=== PATIENT | male | born 1950 | race African-American/Black ===

== ENCOUNTER 2017-11-10 19:08 | Emergency (ER) | payer OTHER ==
[~2017-11-10] VITALS: Ht 175.3 cm; Wt 110.2 kg
--- NOTE | ~2017-11-10 | EKG ---
[place] [address] [facility] [place] [employer] [place] [address] ELECTROCARDIOGRAM REPORT Name: JACQUES DOWELL Room #: DEP LUISANA Buenrostro#: [id number] Admission: 11/10/17 Attend Phys: Discharge: 11/10/17 Date of : 52 Report #: [id number] THIS REPORT FOR: //name// [facility] ED Test Date: 2017-11-10 Test Time: 19:15:12 Pat Name: JACQUES DOWELL Department: Room: Gender: Inspector Conveyor Line: BELA : 1950 Requested By: Michael Rojas Order Number: [id number] MD: Octaviano Valerio Measurements Intervals [place] Rate: 97 P: 13 IA: 168 QRS: -28 QRSD: 94 T: -6 QT: 370 QTc: 470 Interpretive Statements Sinus tachycardia Ventricular bigeminy Probable left atrial enlargement Borderline left axis deviation No previous ECG available for comparison Electronically Signed On 11-11-2017 19:48:48 CDT by Octaviano Valerio [email or web address] <ELECTRONICALLY SIGNED> By: Octaviano Valerio MD 11/11/17 194 14 191 MD DENIS Woodall
[2017-11-10] MEDS ORDERED: VERAPAMIL E.R240 M1 PO (19:18)
[2017-11-10] MEDS ORDERED: ASPIR 8181 MG PO (19:18)
[2017-11-10] MEDS ORDERED: NEURONTIN 300300 M1 PO (19:21)
[2017-11-10] MEDS ORDERED: LIPITOR 20 MG T20 M1 PO (19:22)
[2017-11-10] MEDS ORDERED: DOXAZOSIN MESYLA4 MG PO (19:22)
[2017-11-10] MEDS ORDERED: ROBAXIN 750 MG750 M1 PO (19:23)
[2017-11-10] MEDS ORDERED: PERCOCET PO (19:23)
[2017-11-10] MEDS ORDERED: CENTRUM SILVER1 EAC4 PO (19:24)
[2017-11-10] MEDS ORDERED: ALPHAGAN P5 ML OPHTHALMIC (19:24)
[2017-11-10] MEDS ORDERED: XALATAN2.5 ML OPHTHALMIC (19:25)
[2017-11-10 19:33] LABS: ABSOLUTE NEUTROPHILS 3.6 thou/uL (1.4-8.2); BASOPHILS 0.4 % (0.0-2.0); EOSINOPHILS 1.7 % (0.0-3.0); HEMATOCRIT 39.1 % (42.0-52.0); HEMOGLOBIN 13.1 gm/dL (14.0-18.0); LYMPHOCYTES 28.4 % (24.0-44.0); MCH 30.7 pg (26.0-34.0); MCHC 33.6 g/dL (28.0-37.0); MCV 91.3 fL (80.0-100.0); MONOCYTES 8.8 % (1.0-8.0); PLATELET COUNT 255 thou/uL (150-400); POLYS 60.7 % (36.0-66.0); RBC 4.28 mil/uL (4.50-6.00); RDW 14.2 % (10.5-14.5); WBC 5.9 thou/uL (4.0-11.0)
[2017-11-10 19:42] LABS: CALCIUM 9.2 mg/dL (8.5-10.1); CREATININE 1.5 mg/dL (0.7-1.3)
[2017-11-10 19:48] LABS: DIRECT BILIRUBIN 0.1 mg/dL (<0.1-0.3); TOTAL BILIRUBIN 0.6 mg/dL (<0.1-1.0); TOTAL PROTEIN 7.8 g/dL (6.4-8.2)
[2017-11-10 20:29] LABS: URINE BILIRUBIN NEGATIVE (Negative); URINE BLOOD NEGATIVE (Negative); URINE CLARITY CLEAR; URINE COLOR YELLOW; URINE GLUCOSE-RANDOM* NEGATIVE (Negative); URINE KETONES NEGATIVE (Negative); URINE LEUKOCYTES NEGATIVE (Negative); URINE NITRITE NEGATIVE (Negative); URINE PROTEIN (DIPSTICK) NEGATIVE (Negative); URINE UROBILINOGEN 0.2 E.U./dl (0.2-1.0)
[2017-11-10] MEDS ORDERED: MOBIC15 MG PO (20:56)
[2017-11-10 21:14] VITALS: BP 160/100
== END 2017-11-10 21:15 | disposition home or self-care (01) ==
LOC: ER 19:08 → EDBD 19:08 → ER 21:15
PROVIDERS: Nurse Practitioner
DX: R10.31 Right lower quadrant pain (principal); I10 Essential (primary) hypertension

== ENCOUNTER 2019-03-31 14:35 | Emergency (ER) | payer OTHER ==
[~2019-03-31] VITALS: Ht 175.3 cm; Wt 110.2 kg
[~2019-03-31 14:35] MED LIST: ALPHAGAN P5 ML OPHTHALMIC; ASPIR 8181 MG PO; CENTRUM SILVER1 EAC4 PO; DOXAZOSIN MESYLA4 MG PO; LIPITOR 20 MG T20 M1 PO; MOBIC15 MG PO; NEURONTIN 300300 M1 PO; PERCOCET PO; ROBAXIN 750 MG750 M1 PO; VERAPAMIL E.R240 M1 PO; XALATAN2.5 ML OPHTHALMIC
[2019-03-31] MEDS ORDERED: METHOCARBAMOL750 MG PO (15:18)
[2019-03-31] MEDS ORDERED: FISH OIL 1,001000 M2 PO (15:20)
[2019-03-31 15:37] LABS: ABSOLUTE NEUTROPHILS 4.8 thou/uL (1.4-8.2); BASOPHILS 0.4 % (0.0-2.0); EOSINOPHILS 1.5 % (0.0-3.0); HEMATOCRIT 39.1 % (42.0-52.0); LYMPHOCYTES 21.5 % (24.0-44.0); MCH 30.3 pg (26.0-34.0); MCHC 33.2 g/dL (28.0-37.0); MCV 91.4 fL (80.0-100.0); MONOCYTES 8.1 % (1.0-8.0); PLATELET COUNT 241 thou/uL (150-400); POLYS 68.5 % (36.0-66.0); RBC 4.28 mil/uL (4.50-6.00)
[2019-03-31 15:40] LABS: ANION GAP 9 mmol/L (7-16); BUN 26 mg/dL (7-18); CHLORIDE 102 mmol/L (98-107); CO2 26 mmol/L (21-32); CREATININE 1.6 mg/dL (0.7-1.3); GLUCOSE 135 mg/dL (74-106); POTASSIUM 3.8 mmol/L (3.5-5.1); SODIUM 137 mmol/L (136-145)
[2019-03-31 15:46] LABS: TROPONIN-I <0.06 ng/mL (<0.06)
[2019-03-31 18:02] VITALS: BP 124/82
--- NOTE | 2019-04-01 08:21 | EKG ---
[place] [address] [facility] [place] [address] ELECTROCARDIOGRAM REPORT Name: JACQUES DOWELL [id number] Admission: 03/31/19 Attend Phys: Discharge: 03/31/19 Date of : 52 Report #: [id number] THIS REPORT FOR: //name// [facility] ED Test Date: 2019-03-31 Test Time: 14:36:58 Pat Name: JACQUES DOWELL Department: Room: Gender: Kitchen Designer: ADI : 1950 Requested By: Timothy Florez Order Number: [id number] MD: Ignacio Burnett Measurements Intervals [place] Rate: 118 P: 23 MO: 171 QRS: -31 QRSD: 90 T: QT: 337 QTc: 473 Interpretive Statements Sinus tachycardia Occasional premature ventricular complexes Left axis deviation Abnormal R-wave progression, late transition Borderline T wave abnormalities Compared to ECG 11/10/2017 19:15:12 T-wave abnormality now present Electronically Signed On 04-01-2019 8:21:05 CDT by Ignacio Burnett [email or web address] <ELECTRONICALLY SIGNED> By: Ignacio Burnett MD, [facility] 04/01/19 0821 [id number] 143 Ignacio Burnett MD, [facility] /EPI
== END 2019-03-31 18:03 | disposition home or self-care (01) ==
LOC: ER 14:35
PROVIDERS: Emergency Medicine
DX: M79.604 Pain in right leg (principal); M79.605 Pain in left leg; R06.02 Shortness of breath; I10 Essential (primary) hypertension; G47.30 Sleep apnea, unspecified; M48.02 Spinal stenosis, cervical region; Z87.891 Personal history of nicotine dependence